=== PATIENT | male | born 1960 | race Caucasian/White ===

== ENCOUNTER 2020-06-22 15:06 | Outpatient (REF) | payer OTHER, SELFPAY ==
[2020-06-22 16:08] LABS: Appearance Urine CLEAR; Color Urine YELLOW; Glucose Urine UA NEG (NEG); Hemoglobin 14.4 g/dl (14.0-18.0); Leukocyte Esterase Urine NEG (NEG); Mean Corpuscular HGB Conc 34.3 g/dl (31.0-36.0); Mean Corpuscular Hemoglobin 31.6 pg (27.0-33.0); Mean Corpuscular Volume 92.3 fL (80-98); Mean Platelet Volume 10.3 fL (9.4-12.4); Nitrite Urine NEG (NEG); Platelet Count 224 X10*3/uL (160-400); Red Blood Count 4.55 X10*6/uL (4.60-5.80); Red Cell Distribution Width 12.4 % (11.0-16.0); Urine Blood NEG (NEG); Urine Ketones NEG (NEG); Urine Protein NEG (NEG-TRACE); White Blood Count 6.1 X10*3/uL (4.8-10.8)
[2020-06-22 16:24] LABS: Alanine Aminotransferase 29 U/L (0-40); Alkaline Phosphatase 77 U/L (39-117); Anion Gap 13 (12-20); Aspartate Amino Transferase 20 U/L (5-37); Bilirubin Direct 0.3 mg/dL (0.0-0.5); Bilirubin Total 0.7 mg/dL (0.0-1.0); Blood Urea Nitrogen 21 mg/dL (9-16); Calcium 9.2 mg/dL (8.4-10.2); Carbon Dioxide 27 mmol/L (22-29); Chloride 102 mmol/L (96-108); Cholesterol 246 mg/dL; Estimated Glomerular Filt Rate > 60; Glucose Random 170 mg/dL (60-115); HDL Cholesterol 50 mg/dL; LDL Cholesterol Calculated 169 mg/dl; Potassium 4.2 mmol/L (3.3-5.1); Sodium 138 mmol/L (135-145); Total Protein 7.4 g/dL (6.5-8.0); Triglycerides 138 mg/dL
[2020-06-22 16:46] LABS: Thyroid Stimulating Hormone 0.66 uIU/mL (0.32-4.0)
== END 2020-06-22 15:07 | disposition home or self-care (01) ==
LOC: HO.LAB 15:06
PROVIDERS: PCP Internal Medicine; Visit Provider Internal Medicine
DX: E78.00 Pure hypercholesterolemia, unspecified (principal)
CPT/HCPCS: 36415; 80048; 80061; 80076; 81003; 84443; 85027

== ENCOUNTER 2020-07-13 14:34 | Outpatient (REF) | payer OTHER, SELFPAY ==
[2020-07-13 15:13] LABS: Estimated Average Glucose 108 mg/dL; Hemoglobin A1c % 5.4 %
== END 2020-07-13 14:35 | disposition home or self-care (01) ==
LOC: HO.LAB 14:34
PROVIDERS: PCP Internal Medicine; Visit Provider Internal Medicine
DX: L72.0 Epidermal cyst (principal); R73.9 Hyperglycemia, unspecified
CPT/HCPCS: 11421; 36415; 83036; 99202

== ENCOUNTER 2020-07-14 10:32 | Outpatient (REF) | payer OTHER, SELFPAY | END 2020-07-14 10:33 | disposition home or self-care (01) | LOC: HO.LAB 10:32 | PROVIDERS: Visit Provider Surgery | DX: C44.41 Basal cell carcinoma of skin of scalp and neck (principal) | CPT/HCPCS: 88304; 88305 ==

== ENCOUNTER → 2020-07-27 14:59 | Outpatient (BNVA) | payer OTHER, SELFPAY | PROVIDERS: PCP Internal Medicine; Referring Provider Internal Medicine; Visit Provider Surgery | DX: C44.91 Basal cell carcinoma of skin, unspecified (principal) | CPT/HCPCS: 99212 ==

== ENCOUNTER 2021-08-21 15:23 | Outpatient (REF) | payer OTHER, SELFPAY ==
--- NOTE | 2021-08-21 15:28 | ECG_ITS ---
Test Reason : HTN Blood Pressure : / mmHG Vent. Rate : 067 BPM Atrial Rate : 067 BPM P-R Int : 136 ms QRS Dur : 094 ms QT Int : 382 ms P-R-T Axes : 067 062 038 degrees QTc Int : 403 ms Normal sinus rhythm with sinus arrhythmia Minimal voltage criteria for LVH, may be normal variant ( Sokolow-Duque ) Borderline ECG When compared with ECG of 03-JUL-2016 15:53, No significant change was found Referred By: Radha Mar Electronically Signed By:STEPHANIE MEHTA
[2021-08-21 15:36] LABS: MANUAL DIFF FLAG NO
[2021-08-21 15:47] LABS: Basophils Percent Auto 0.5 % (0-2); Eosinophils Absolute Auto 0.1 X10*3/uL (0.0-0.4); Eosinophils Percent Auto 1.2 % (0-4); Hematocrit 41.5 % (42.0-52.0); Hemoglobin 14.8 g/dl (14.0-18.0); Imm Gran Abs Auto 0.06 X10*3/uL (0.00-0.03); Imm Gran Pct Auto 0.8 % (0.0-0.4); Lymphocytes Absolute Auto 2.9 X10*3/uL (1.2-4.9); Lymphocytes Percent Auto 37.5 % (20-40); Mean Corpuscular HGB Conc 35.7 g/dl (31.0-36.0); Mean Corpuscular Hemoglobin 32.9 pg (27.0-33.0); Mean Corpuscular Volume 92.2 fL (80.0-98.0); Mean Platelet Volume 9.8 fL (9.4-12.4); Monocytes Absolute Auto 0.6 X10*3/uL (0.1-1.2); Monocytes Percent Auto 7.8 % (2-11); Neutrophils Percent Auto 52.2 % (45-73); Platelet Count 237 X10*3/uL (160-400); Red Cell Distribution Width 13.1 % (11.0-16.0); White Blood Count 7.7 X10*3/uL (4.8-10.8)
[2021-08-21 16:16] LABS: Alanine Aminotransferase 24 U/L (0-40); Alkaline Phosphatase 81 U/L (39-117); Anion Gap 11 (12-20); Aspartate Amino Transferase 19 U/L (5-37); Bilirubin Total 0.8 mg/dL (0.0-1.0); Blood Urea Nitrogen 19 mg/dL (9-16); Calcium 9.2 mg/dL (8.4-10.2); Carbon Dioxide 27 mmol/L (22-29); Chloride 102 mmol/L (96-108); Cholesterol 268 mg/dL; Estimated Glomerular Filt Rate > 60; Glucose Fasting 118 mg/dL (60-99); HDL Cholesterol 52 mg/dL; LDL Cholesterol Calculated 179 mg/dl; Potassium 4.6 mmol/L (3.3-5.1); Sodium 135 mmol/L (135-145); Total Protein 7.8 g/dL (6.5-8.0); Triglycerides 187 mg/dL
== END 2021-08-21 15:24 | disposition home or self-care (01) ==
LOC: HO.LAB 15:23
PROVIDERS: Visit Provider Nurse Practitioner Family
DX: I10 Essential (primary) hypertension (principal); E78.00 Pure hypercholesterolemia, unspecified
CPT/HCPCS: 36415; 80053; 80061; 85025; 93005

== ENCOUNTER → 2021-11-30 14:52 | Outpatient (BNVA) | payer OTHER, SELFPAY | PROVIDERS: PCP Internal Medicine; Visit Provider Surgery | DX: Z01.818 Encounter for other preprocedural examination (principal) | CPT/HCPCS: 99212 ==

== ENCOUNTER 2022-10-11 14:56 | Outpatient (AMB) | payer OTHER, SELFPAY ==
--- NOTE | 2022-10-11 15:05 | A.OFFPC_ITS ---
Vital Signs 10/11/22 15:06 Height 5 ft 7.5 in Weight 176 lb 8 oz BMI 27.2 BP 140/89 H Blood Pressure Location Lt brachial Position Sitting Pulse 78 Pulse Source Pulse Oximeter Pulse Oximetry (%) 98 Oxygen Delivery Method Room Air Intake Visit Reasons: Annual Exam Intake Note: Patient is here today for a physical. Rn Palliative Required: No Material Planning Analyst: Not Required per policy Accompanied by: Self / Same As Patient Allergies No Known Allergies Allergy (Verified 10/11/22 15:06) Tobacco use date assessed: 10/11/22 Dental Screening Dental Screen Date: 10/11/22 Did you have a dental visit in the last 12 months?: No Did you have a dental problem in the last 6 months where you did not have access to dental care?: No Was dental information given to patient?: No HPI Annual Exam HPI Details 61-year-old male presents to the office for annual physical. Patient for on the Cologuard test was positive. A screening colonoscopy was ordered but he never got it done. He would like to see a different provider this time. He spends half the year in [place] and spends the summer here. He would like to get a lesion on the forehead checked. [facility] Medical History Basal cell carcinoma Colon cancer screening Epidermal cyst of neck Erectile dysfunction Hypercholesterolemia Surgical History History of elbow surgery History of surgery on wrist Family History Mother Hypertension Father No problems noted. Social History Housing: House Alcohol intake: current Alcohol intake frequency: 0-2 drinks per day Alcohol type: beer Patient Tobacco Use Status: Never used Tobacco e-Cigarette/Vaping Use: Never Used Second Hand Smoke Exposure: No service: No Current occupational status: employed Cognitive needs: No Hearing needs: No Vision needs: Yes Questionnaire PHQ-9 Over the last 2 weeks, how often have you been bothered by any of the following problems? 1. Little interest or pleasure in doing things: not at all 2. Feeling down, depressed, or hopeless: not at all 3. Trouble falling or staying asleep, or sleeping too much: not at all 4. Feeling tired or having little energy: not at all 5. Poor appetite or overeating: not at all 6. Feeling bad about yourself - or that you are a failure or have let yourself or your family down: not at all 7. Trouble concentrating on things, such as reading the newspaper or watching television: not at all 8. Moving or speaking so slowly that other people could have noticed. Or the opposite - being so fidgety or restless that you have been moving around a lot more than usual: not at all 9. Thoughts that you would be better off or of hurting yourself in some way: not at all Total score: 0 Depression Screening Interpretation: Negative Source: Developed by Drs. Jamie Lozano, Joy Olivia, Juan Francisco Nix and colleagues, with an educational ale from [employer]. Thrive Questionnaire Date Thrive assessed: 10/11/22 I am a: Patient What is your living situation today?: I have a steady place to live Within the past 12 months, did the food you bought not last and you didn't have the money to get more?: Never true Within the past 12 months, did you worry whether your food would run out before you got money to buy more?: Never true Do you have trouble paying for medicines?: No Do you have trouble getting transportation to medical appointments?: No Do you have trouble paying your heating and electricity bill?: No Do you have trouble taking care of your child, family member or friend?: No Do you have trouble with day-to-day activities such as bathing, preparing meals, shopping, managing finances, etc.?: No Are you currently unemployed and looking for a job?: No Are you interested in more education?: No Currently or been in a relationship where the following occur: no concerns reported AUDIT C Alcohol Use Questionnaire (AUDIT-C) 1. How often do you have a drink containing alcohol?: 4 or more times a week 2. How many drinks containing alcohol do you have on a typical day when you are drinking?: 1 or 2 Total Score: 4 BRITTON-7 AMB Questionnaire BRITTON-7 Date BRITTON - 7 assessed: 10/11/22 Feeling nervous, anxious, or on edge: 0 = Not at all Not being able to stop or control worryin = Not at all Worrying too much about different things: 0 = Not at all Trouble relaxin = Not at all Being so restless that it is hard to sit still: 0 = Not at all Becoming easily annoyed or irritable: 0 = Not at all Feeling afraid as if something awful might happen: 0 = Not at all Total BRITTON-7 score (0-4 normal; 5-9 mild; 10-14 moderate; 15-21 severe): 0 Source: Developed by Drs. Jamie Lozano, Joy Olivia, Juan Francisco Nix and colleagues, with an educational ale from [employer]. Physical exam (Primary Care) Vital Signs: Last Vital Signs Pulse 78 10/11/22 15:06 BP 140/89 H 10/11/22 15:06 Pulse Ox 98 10/11/22 15:06 Oxygen Delivery Method Room Air 10/11/22 15:06 Care Plan Goal for BP management: Blood pressure is elevated. Lisinopril has been increased to 20 mg a day. BMI result Body Mass Index 27.2 Tobacco/Smoking Status: Tobacco use Status Tobacco use date assessed 10/11/22 10/11/22 15:12 Patient Tobacco Use Status Never used Tobacco 10/11/22 15:12 e-Cigarette/Vaping Use Never Used 10/11/22 15:12 PHQ-9: PHQ-9 Score PHQ-9: Total score 0 10/11/22 15:12 Depression Screening Interpretation: Negative Thrive Assessment: Date of Thrive Assessment Date Thrive assessed 10/11/22 10/11/22 15:12 Currently or been in a relationship where the following occur: no concerns reported Advance Care Planning discussion: Exists, not on file Date of discussion: 10/11/22 Who was present: Patient Forms completed: MOLST Time spent: 1-15 minutes, not on file Actual minutes spent: 5 Const General: cooperative, healthy appearing and comfortable HENMT Head: Yes normal to inspection and Yes atraumatic Eyes General: appearance normal, both eyes and all related structures Neck Neck: Yes normal visual inspection and Yes full ROM Chest Chest palpation & inspection: normal inspection of the chest Resp Effort & Inspection: normal respiratory effort Auscultation: clear to auscultation bilaterally Cardio Jugular venous distension: no JVD Palpation: normal PMI Rate: regular rate Heart sounds: S1 normal heart sound present and S2 normal heart sound present GI Palpation (GI): Soft to palpation and No hepatosplenomegaly present Skin Other: Scabbing lesion on the forehead. Extrem General: Yes normal to inspection and Yes full ROM Assessment and Plan Assessment & Plan (1) Colon cancer screening: Code(s): Z12.11 - Encounter for screening for malignant neoplasm of colon Plan: Patient was strongly urged to get the colonoscopy. A GI appointment has been made this time. (2) Hypertension: Code(s): I10 - Essential (primary) hypertension Plan: Blood pressure is elevated. Lisinopril has been increased to 20 mg once a day. Continue other medications. (3) Annual physical exam: Code(s): Z00.00 - Encounter for general adult medical examination without abnormal findings Plan: Blood work has been ordered. Coding Level of Care Code Est Pt Level 3 (64447) Est Pt Prev Care 40-64y(87090) Diagnoses Colon cancer screening Z12.11 Hypertension I10 Annual physical exam Z00.00 Additional Codes Vital Signs *Quality* - Advance Care Planning discussion: Exists, not on file ([id number]) Vital Signs *Quality* - Time spent: 1-15 minutes, not on file ([id number])
[2022-10-11 15:06] VITALS: BP 140/89; PULSE 78; O2SAT 98; BMI 27.2
== END 2022-10-11 15:58 | disposition home or self-care (01) ==
PROVIDERS: PCP Internal Medicine; Visit Provider Internal Medicine
DX: Z00.00 Encounter for general adult medical examination without abnormal findings (principal); Z12.11 Encounter for screening for malignant neoplasm of colon; I10 Essential (primary) hypertension
CPT/HCPCS: 1124F; 99396

== ENCOUNTER 2022-10-25 16:00 | Outpatient (AMB) | payer OTHER, SELFPAY ==
[2022-10-25 16:05] VITALS: BP 133/69; PULSE 99; BMI 26.7
--- NOTE | 2022-10-25 16:05 | MHC.OFFVIS ---
Intake Vital Signs 10/25/22 16:05 Height 5 ft 7.5 in Weight 173 lb BMI 26.7 BP 133/69 Blood Pressure Location Rt brachial Position Sitting Pulse 99 Intake Visit Reasons: Nonhealing wound of forehead Intake Note: Patient referred for non healing lesion on Mid forehead X6m. C/o occasional bleeding. No hx of skin ca. 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 He says that he has noticed this for about over 6 months now. He states that this does not heal at all. He says that these bleeds easily and would form a scab. He says that this would then bleed periodically and would not actually heal at all. [facility] Medical History (Updated 10/25/22 @ 16:20 by Sergio Bertrand MD) Basal cell carcinoma Colon cancer screening Epidermal cyst of neck Erectile dysfunction Hypercholesterolemia Skin lesion of face Surgical History History of elbow surgery History of surgery on wrist Family History Mother Hypertension Father No problems noted. Social History Housing: House Alcohol intake: current Alcohol intake frequency: 0-2 drinks per day Alcohol type: beer Patient Tobacco Use Status: Never used Tobacco e-Cigarette/Vaping Use: Never Used Second Hand Smoke Exposure: No service: No Current occupational status: employed Cognitive needs: No Hearing needs: No Vision needs: Yes Review of Systems Const Denies chills and Denies fever(s) Card Denies chest pain, Denies dyspnea and Denies dyspnea on exertion Resp Denies cough, Denies dyspnea and Denies dyspnea on exertion GI Denies hematochezia and Denies change in bowel habits Denies hematuria and Denies difficulty urinating Musc Denies back pain and Denies limited range of motion Neuro Denies focal weakness and Denies convulsions Psych Denies depression and Denies mood swings Physical Exam Vital Signs: Last Vital Signs Pulse 99 10/25/22 16:05 BP 133/69 10/25/22 16:05 BMI result Body Mass Index 26.7 Const General: comfortable and no acute distress Orientation/consciousness: patient oriented x3 HEENT Other: Small ulcerating flat lesion on the forehead about 8 mm by 3 mm, Neck Neck: Yes no lymphadenopathy Resp Auscultation: clear to auscultation bilaterally Cardio Rhythm: regular rhythm GI Palpation (GI): Soft to palpation, nontender and no guarding Neuro General: patient oriented x3 Assessment & Plan Assessment & Plan (1) Skin lesion of face: Code(s): L98.9 - Disorder of the skin and subcutaneous tissue, unspecified Plan: This continues to ulcerate and she had periodically. This is nonhealing. This may be a basal cell carcinoma or squamous cell carcinoma. I explained the technique of excision under local anesthesia. I reviewed the risks including but not limited to bleeding and infections, as well as the benefits and alternatives. He agrees to proceed This will be done at the minor procedure room. Coding Level of Care Code New Pt Level 3 (39137) Diagnoses Skin lesion of face L98.9
== END 2022-10-25 16:20 | disposition home or self-care (01) ==
PROVIDERS: PCP Internal Medicine; Visit Provider Surgery
DX: L98.9 Disorder of the skin and subcutaneous tissue, unspecified (principal)
CPT/HCPCS: 99213

== ENCOUNTER 2022-10-25 16:00 | Outpatient (REF) | payer OTHER, SELFPAY ==
[2022-10-25 18:13] LABS: Hematocrit 40.3 % (42.0-52.0); Hemoglobin 14.3 g/dl (14.0-18.0); Mean Corpuscular HGB Conc 35.5 g/dl (31.0-36.0); Mean Corpuscular Hemoglobin 32.4 pg (27.0-33.0); Mean Corpuscular Volume 91.4 fL (80.0-98.0); Mean Platelet Volume 10.3 fL (9.4-12.4); Platelet Count 220 X10*3/uL (160-400); Red Blood Count 4.41 X10*6/uL (4.60-5.80); White Blood Count 8.9 X10*3/uL (4.8-10.8)
[2022-10-25 18:32] LABS: Alanine Aminotransferase 23 U/L (0-40); Albumin Level 4.1 g/dL (3.5-5.0); Alkaline Phosphatase 76 U/L (39-117); Anion Gap 13 (12-20); Aspartate Amino Transferase 19 U/L (5-37); Bilirubin Direct 0.2 mg/dL (0.0-0.5); Bilirubin Total 0.5 mg/dL (0.0-1.0); Blood Urea Nitrogen 20 mg/dL (9-16); Calcium 9.5 mg/dL (8.4-10.2); Carbon Dioxide 22 mmol/L (22-29); Chloride 107 mmol/L (96-108); Cholesterol 187 mg/dL (<200); Estimated Glomerular Filt Rate > 60; Glucose Random 107 mg/dL (60-115); HDL Cholesterol 53 mg/dL (>40); LDL Cholesterol Calculated 97 mg/dL (<100); Potassium 3.9 mmol/L (3.3-5.1); Sodium 138 mmol/L (135-145); Total Protein 7.9 g/dL (6.5-8.0); Triglycerides 187 mg/dL (<150)
[2022-10-25 18:47] LABS: Thyroid Stimulating Hormone 1.06 uIU/mL (0.32-4.0)
== END 2022-10-25 16:01 | disposition home or self-care (01) ==
LOC: HO.LAB 16:00
PROVIDERS: Absent Provider Internal Medicine; PCP Internal Medicine; Visit Provider Surgery
DX: L98.9 Disorder of the skin and subcutaneous tissue, unspecified (principal); E78.00 Pure hypercholesterolemia, unspecified; I10 Essential (primary) hypertension
CPT/HCPCS: 36415; 80048; 80061; 80076; 84443; 85027

== ENCOUNTER 2022-11-12 07:54 | Outpatient (REF) | payer OTHER, SELFPAY ==
[2022-11-12 08:03] VITALS: BP 136/76; PULSE 62; RESP 16; TEMP 36.9; O2SAT 98; BMI 25.1
--- NOTE | 2022-11-12 08:25 | P.OP_ITS ---
Operative Note Operative Note Date of Service: 11/12/22 Narrative: Preop diagnosis: Skin lesion, forehead Postop diagnosis: The same Procedure: Excision of skin lesion, forehead Surgeon: Sergio Bertrand MD The patient is a 62-year-old male with a skin lesion on the forehead, ulcerat ing, probably about 9 mm in diameter. He understood the technique of the planned procedure as well as the risks, benefits, and alternatives He was brought to the minor procedure room. He was placed in a reclining position. A surgical time-out was done. I infiltrated the planned line of incision with lidocaine 1%. I made an elliptical incision around this lesion us ing blade 15 to include all grossly involved skin. This was carried down through the full-thickness of the skin and part of the subcutaneous layer to remove the entire lesion. This was sent as a specimen. I closed the incision with full-thickness nylon 6 0 simple interrupted sutures. Dressings were applied. The procedure was completed. He tolerated procedure well. There were no immediate complications. Estimated blood loss was less than 5 cc. He was given wound care instructions.
[2022-11-12 08:30] VITALS: BP 142/73; PULSE 61; RESP 16; O2SAT 98
== END 2022-11-12 07:55 | disposition home or self-care (01) ==
LOC: HO.MS 07:54
PROVIDERS: PCP Internal Medicine; Visit Provider Surgery
PROC: (CPT 11106; principal; 2022-11-12 08:00)
DX: C44.319 Basal cell carcinoma of skin of other parts of face (principal); L98.9 Disorder of the skin and subcutaneous tissue, unspecified
CPT/HCPCS: 11106; 88305

== ENCOUNTER → 2022-11-12 07:54 | Outpatient (BNV) | payer OTHER, SELFPAY | PROVIDERS: PCP Internal Medicine; Visit Provider Surgery | DX: C44.319 Basal cell carcinoma of skin of other parts of face (principal) | CPT/HCPCS: 11642 ==

== ENCOUNTER 2022-11-19 15:43 | Outpatient (AMB) | payer OTHER, SELFPAY ==
--- NOTE | 2022-11-19 15:45 | MHC.OFFVIS ---
Intake Vital Signs 11/19/22 15:53 BP 151/72 H Blood Pressure Location Rt brachial Position Sitting Pulse 77 Intake Visit Reasons: S/P exc skin lesion of forehead Intake Note: This patient presents for a post-op assessment status post excision skin lesion on forehead. Patient c/o; reports no issues or complaints at this time. 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 He tolerated the procedure well. He currently denies significant complaints. [facility] Medical History Skin lesion of face Colon cancer screening Basal cell carcinoma Epidermal cyst of neck Hypercholesterolemia Erectile dysfunction Surgical History History of excision of lesion (~11/12/22) History of elbow surgery History of surgery on wrist Family History Mother Hypertension Father No problems noted. Social History Housing: House Alcohol intake: current Alcohol intake frequency: 0-2 drinks per day Alcohol type: beer Patient Tobacco Use Status: Never used Tobacco e-Cigarette/Vaping Use: Never Used Second Hand Smoke Exposure: No service: No Current occupational status: employed Cognitive needs: No Hearing needs: No Vision needs: Yes Review of Systems Const Denies chills and Denies fever(s) Card Denies chest pain, Denies dyspnea and Denies dyspnea on exertion Resp Denies cough, Denies dyspnea and Denies dyspnea on exertion GI Denies hematochezia and Denies change in bowel habits Denies hematuria and Denies difficulty urinating Musc Denies back pain and Denies limited range of motion Neuro Denies focal weakness and Denies convulsions Psych Denies depression and Denies mood swings Physical Exam Const General: comfortable and no acute distress HEENT Other: Excision site on the forehead is well healed, not infected, sutures intact Resp Effort & Inspection: normal respiratory effort Assessment & Plan Assessment & Plan (1) Skin lesion of face: Code(s): L98.9 - Disorder of the skin and subcutaneous tissue, unspecified Plan: Status post excision. His incision is well healed. I removed all his sutures. His path report shows a basal cell carcinoma. This completely excised. He can follow up on a p.r.n. basis. (2) Basal cell carcinoma: Code(s): C44.91 - Basal cell carcinoma of skin, unspecified Medications: Discontinued sodium,potassium,mag sulfates 17.5-3.13-1.6 gram (Suprep Bowel Prep Kit) Discontinued Reason: Patient Completed Course DILUTE; drink full amount early evening before AND next morning at least 2 hr before procedure; follow w 960 mL water PO 354 mL 0RF Coding Level of Care Code Global (60526) Diagnoses Skin lesion of face L98.9 Basal cell carcinoma C44.91
[2022-11-19 15:53] VITALS: BP 151/72; PULSE 77
== END 2022-11-19 16:06 | disposition home or self-care (01) ==
PROVIDERS: PCP Internal Medicine; Visit Provider Surgery
DX: L98.9 Disorder of the skin and subcutaneous tissue, unspecified (principal); C44.91 Basal cell carcinoma of skin, unspecified
CPT/HCPCS: 99024

== ENCOUNTER → 2022-11-19 15:43 | Outpatient (BNVA) | payer OTHER, SELFPAY | PROVIDERS: PCP Internal Medicine; Visit Provider Surgery ==

== ENCOUNTER 2023-01-23 14:51 | Outpatient (AMB) | payer OTHER, SELFPAY ==
--- NOTE | 2023-01-23 14:57 | A.OFFVIS_ITS ---
Intake Vital Signs 01/23/23 14:58 Height 5 ft 10 in Weight 178 lb 9.191 oz BMI 25.6 BP 139/76 Blood Pressure Location Lt brachial Position Sitting Pulse 97 Intake Visit Reasons: colonoscopy screening Intake Note: Tunde presents in the office as a new patient colonoscopy screening. CC: He states that he is not having any concerns today. Assistant Department Manager Required: No Allergies cat dander Allergy (Mild, Verified 01/23/23 15:04) Unknown HPI colonoscopy screening HPI Details 62 year old? male here today for pre col onoscopy screening.? Patient was sent to us by his PCP.? This is his first colonoscopy screening.? Patient had positive Cologuard test in October of 2021. Patient denies any gastrointestinal symptoms in the past or at present.? Denies any personal or family history of gastrointestinal disease, colon polyps, or cancer.? Denies history of difficulty with sedation or anesthesia in the past.? Negative for history of sleep apnea.? Denies any history of cardiac, renal, pulmonary, or hepatic disease.?? No history of infectious? diseases like hepatitis A, B, C, HIV or tuberculosis.? Patient is not on any anticoagulation therapy. [facility] Medical History Skin lesion of face Colon cancer screening Basal cell carcinoma Epidermal cyst of neck Hypercholesterolemia Erectile dysfunction Surgical History History of excision of lesion (~11/12/22) History of elbow surgery History of surgery on wrist Family History Mother Hypertension Father No problems noted. Social History Housing: House Alcohol intake: current Alcohol intake frequency: 0-2 drinks per day Alcohol type: beer Patient Tobacco Use Status: Never used Tobacco e-Cigarette/Vaping Use: Never Used Second Hand Smoke Exposure: No service: No Current occupational status: employed Cognitive needs: No Hearing needs: No Vision needs: Yes Physical Exam Vital Signs: Last Vital Signs Pulse 97 01/23/23 14:58 BP 139/76 01/23/23 14:58 BMI result Body Mass Index 25.6 Const General: healthy appearing, no acute distress and well developed Nutritional Appearance: well nourished Orientation/consciousness: patient oriented x3 HEENT Head: Yes normal to inspection, Yes normocephalic and Yes atraumatic Face and sinus: Yes normal facial exam Mouth: Normal oral and palatal mucosa present Throat: Yes posterior oropharynx normal, Yes tonsils normal and Yes uvula midline Eyes General: appearance normal, both eyes and all related structures Neck Neck: Yes normal visual inspection, Yes full ROM and Yes trachea midline Thyroid: Thyroid normal Resp Effort & Inspection: normal respiratory effort, able to speak in complete sentences, no tracheal deviation and symmetric chest movement Auscultation: clear to auscultation bilaterally Cardio Rate: regular rate Heart sounds: S1 normal heart sound present and S2 normal heart sound present GI Inspection: Yes normal to inspection and No distended Palpation (GI): Soft to palpation, not firm, nontender and No hepatosplenomegaly present Auscultation: normal bowel sounds General: Yes no CVA tenderness Back/Spine/Pelvis Back: no CVA tenderness Skin General skin exam: elasticity normal, turgor normal and dry skin Neuro General: patient oriented x3 Psych Appearance: grossly normal Mental Status: mental status grossly normal Assessment & Plan Assessment & Plan (1) Colon cancer screening: Code(s): Z12.11 - Encounter for screening for malignant neoplasm of colon (2) Positive colorectal cancer screening using Cologuard test: Code(s): R19.5 - Other fecal abnormalities Plan Patient denies any GI, cardiac or respiratory symptoms.? Denies any issues with anesthesia in the past.? Denies any history of sleep apnea.? No history infectious diseases in the past or present.? Not on any anticoagulation therapy.? No family or personal history of colon cancer or polyps.? Positive Cologuard in October of 2021. Patient denies melena, hematochezia, unintentional weight loss or ribbon like stools.? Discussed at length the pre- procedure,? prep, diet & medications as well as what to expect prior, during and after the procedure.?? Stressed the importance of good bowel prep. ?Recommended the use of Vaseline or Calmoseptine OTC & baby wipes with bowel movements to promote comfort.? ?Patient verbalizes understanding and agrees to plan of care.? He was given the opportunity to ask questions and all questions answered.? We will see him after the procedure.? Medications: New bisacodyl (Dulcolax (bisacodyl)) take 4 tabs at noon the day before your colonoscopy 20 mg (4 x 5 mg) PO ONCE 1 day 4 tabs 0RF Z12.11 - Encounter for screening for malignant neoplasm of colon polyethylene glycol 3350 (Miralax) As directed by gastroenterology department at 238 grams PO ONCE 238 grams 0RF Z12.11 - Encounter for screening for malignant n eoplasm of colon Coding Level of Care Code New Pt Level 3 (50492) Diagnoses Colon cancer screening Z12.11 Positive colorectal cancer screening using Cologuard test R19.5 Time Spent (min) 40 Comment 30 minutes spent with patient and additional 10 minutes spent reviewing his records
[2023-01-23 14:58] VITALS: BP 139/76; PULSE 97; BMI 25.6
== END 2023-01-23 15:29 | disposition home or self-care (01) ==
PROVIDERS: PCP Internal Medicine; Visit Provider Nurse Practitioner Family
DX: Z12.11 Encounter for screening for malignant neoplasm of colon (principal); R19.5 Other fecal abnormalities; Z01.818 Encounter for other preprocedural examination
CPT/HCPCS: 99203

== ENCOUNTER → 2023-01-23 14:51 | Outpatient (BNVA) | payer OTHER, SELFPAY | PROVIDERS: PCP Internal Medicine; Visit Provider Nurse Practitioner Family | DX: Z12.11 Encounter for screening for malignant neoplasm of colon (principal); R19.5 Other fecal abnormalities | CPT/HCPCS: 99202 ==

== ENCOUNTER 2023-06-03 10:00 | Day surgery (SDC) | payer OTHER, SELFPAY ==
[2023-05-30 14:52] VITALS: BMI 25.5
--- NOTE | 2023-05-31 09:51 | P.CONAN_ITS ---
Documented by User: Jeimy Menendez NP 05/31/23 09:51 HPI - Anesthesia Eval Consult details Narrative: 62yo M for Colonoscopy [facility] Active Problems Active Problems: All Active Problems Skin lesion of face (Acute) Colon cancer screening (Acute) Hypertension (Acute) Basal cell carcinoma (Acute) Epidermal cyst of neck (Acute) Hyperglycemia (Acute) Hordeolum external (Acute) Squamous cell carcinoma of neck (Acute) Hypercholesterolemia (Acute) Erectile dysfunction (Acute) Past Medical History Medical History Skin lesion of face Colon cancer screening Basal cell carcinoma Epidermal cyst of neck Hypercholesterolemia Erectile dysfunction Family History Family History Mother Hypertension Father No problems noted. Surgical History Surgical History History of excision of lesion (~11/12/22) History of elbow surgery History of surgery on wrist Social History Social History Housing: House Alcohol intake: current Alcohol intake frequency: 0-2 drinks per day Alcohol type: beer Patient Tobacco Use Status: Never used Tobacco e-Cigarette/Vaping Use: Never Used Second Hand Smoke Exposure: No Use of substances other than those prescribed or required for medical reasons: Yes Are you DNR?: No Advance Directives: No Advance Directives Information Provided: Yes service: No Current occupational status: employed Cognitive needs: No Hearing needs: No Vision needs: Yes Meds Allergies Allergy/AdvReac Type Severity Reaction Status Date / Time cat dander Allergy Mild Unknown Verified 06/03/23 10:06 Exam Height,Weight and Vital Signs: Height 5 ft 10 in Weight 80.739 kg Assessment and Plan Assessment Anesthesia Assessment: Chart Reviewed Documented by User: Josefa Parks MD 06/03/23 10:23 [facility] Past Medical History Medical History Skin lesion of face Colon cancer screening Basal cell carcinoma Epidermal cyst of neck Hypercholesterolemia Erectile dysfunction Family History Family History Mother Hypertension Father No problems noted. Family history of problems with anesthesia: No Surgical History Surgical History History of excision of lesion (~11/12/22) History of elbow surgery History of surgery on wrist History of Problems with Anesthesia: No Social History Social History Housing: House Alcohol intake: current Alcohol intake frequency: 0-2 drinks per day Alcohol type: beer Patient Tobacco Use Status: Never used Tobacco e-Cigarette/Vaping Use: Never Used Second Hand Smoke Exposure: No Use of substances other than those prescribed or required for medical reasons: Yes Are you DNR?: No Advance Directives: No Advance Directives Information Provided: Yes service: No Current occupational status: employed Cognitive needs: No Hearing needs: No Vision needs: Yes Meds Allergies Allergy/AdvReac Type Severity Reaction Status Date / Time cat dander Allergy Mild Unknown Verified 06/03/23 10:06 Exam Airway Mallampati Class: II TM Dist: >3cm Neck ROM: Full Heart: rrr Lungs: cta Assessment and Plan Assessment Anesthesia Assessment: Anesthesia Plan Discussed Final Anesthetic Review Family History of Problems with Anesthesia: No History of Problems with Anesthesia: No NPO: Yes ASA Class: II Final Preanesthetic Review: No Changes in Pt Med Stat, Meds/Allgs Chart Reviewed and Consent Obtained/Reviewed Patient Risk: Low Procedure Risk: Low Anesthetic Plan Anesthetic Plan: MAC: Disposition: Standard PACU
--- NOTE | 2023-06-03 09:35 | MHC.SHP ---
Pre-Procedural Eval Section A - 24 Hr Update-Section A only Date of Service: 06/03/23 The patient is an INPATIENT: No The patient has been examined within 24 hours of the surgical procedure. The History & Physical has been completed within 30 days and I have reviewed it.: No Section B - Complete if H&P > 30 days Chief Complaint: Colon cancer screening, positive Cologuard Relevant Family History (Specify if Yes): No Relevant Social History: None Present Medications: see Short Stay Collaborative assessment Medical History: Significant History (Basal cell carcinoma Epidermal cyst of neck Hypercholesterolemia Erectile dysfunction) History of Previous Operations: Relevant previous surgery/procedure and date(s) (History of excision of lesion (~11/12/22) History of elbow surgery History of surgery on wrist) Allergies: Allergies Allergy/AdvReac Type Severity Reaction Status Date / Time cat dander Allergy Mild Unknown Verified 01/23/23 15:04 Review of Systems Sugical H&P ROS: Negative: Constitution, Cardiovascular, Respiratory and Gastrointestinal Exam Surgical H&P Exam: Normal: Heart, Normal: Lungs, Normal: Extremities and Normal: Abdomen Plan Diagnosis/Plan: Unchanged I have reviewed the history and physical and performed a pertinent physical examination on my patient. No changes have occurred unless specified. Time Spent With Patient Time: Total time managing care of this patient today ____ minutes.
[2023-06-03 10:16] VITALS: BMI 25.1
[2023-06-03 10:18] VITALS: BP 168/90; PULSE 88; RESP 16; TEMP 37.4; O2SAT 97
--- NOTE | 2023-06-03 10:21 | P.OP_ITS ---
Operative Note Operative Note Date of Service: 06/03/23 Narrative: COLONOSCOPY TILL CECUM WITH BIOPSIES, SNARE POLYPECTOMY AND HEMOCLIP PLACEMENT Pre-op diagnosis: Colon cancer screening, positive Cologuard test. Post-op diagnosis:? Colon polyps, Diverticulosis, hemorrhoids Endoscopist:? Lalito Reddy MD Anesthesia:?MAC Consent: Indications for the procedure and potential complications of bleeding, perforation, reaction to medications and missed diagnosis were discussed with the patient and informed consent was obtained. Instrument: Olympus CF H 190 L variable stiffness adult colonoscope Monitoring: Vital signs and clinical assessment, intermittent blood pressure monitoring, continuous EKG monitoring, Pulse oximetry and Carbon Dioxide monitoring were done throughout the procedure. Please see anesthesia flowsheet. Colon withdrawl time was 31 minutes. Procedure: The patient was placed in the left lateral decubitis position and pre-procedure medications were administered. After a digital rectal examination of the ano-rectum, the video colonoscope was inserted into the rectum and advanced through the colon to the cecum. The colonoscope was slowly withdrawn in a retrograde panoramic fashion and the colon mucosa was carefully examined including a retroflexed view of the rectum. Findings and interventions are described below. Procedure Difficulty: without difficulty Findings: Terminal Ileum: Not evaluated Cecum: A 7-8 mm sessile polyp - removed with a cold snare Ascending Colon: Normal Transverse Colon: A 3-4 mm sessile polyp - removed with a cold biopsy Descending Colon: Moderate diverticulosis Sigmoid Colon: A 4-5 mm diminutive appearing polyp - removed with a cold snare. Moderate diverticulosis Rectum: An 18 to 20 mm sessile polyp - removed with a hot snare. Polypectomy site was closed with 1 hemoclip. A 7-8 mm sessile polyp - removed with a hot snare. Ano-rectum: Moderate internal hemorrhoids Colon preparation: Good after copious irrigation. [place] Bowel Preparation Scale Right colon; 2 Transverse colon: 2 Left colon; 2 (0 = Unprepared colon segment with mucosa not seen due to solid stool that cannot be cleared. 1 = Portion of mucosa of the colon segment seen, but other areas of the colon segment not well seen due to staining, residual stool and/or opaque liquid. 2 = Minor amount of residual staining, small fragments of stool and/or opaque liquid, but mucosa of colon segment seen well. 3 = Entire mucosa of colon segment seen well with no residual staining, small fragments of stool or opaque liquid) Impression and Post Procedure Diagnosis: Colonoscopy Findings: Four small and one medium sized polyps were removed Moderate diverticulosis seen in the left colon Moderate hemorrhoids on retroflexed exam. Plan: Pt has a FU appointment on 06/17/23 with Edie Ward NP Repeat Colonoscopy in 3-5 years if polyps are adenomatous and 10 year if polyps are hyperplastic. Above findings were reviewed with the patient and relevant handouts were given and the discharge area. BIOPSIES SHOWED: A. Cecum, polypectomy: Tubular adenoma; negative for high-grade dysplasia or carcinoma. B. Colon, transverse, polypectomy: Colonic mucosa with mild surface hyperplastic changes. C. Colon, sigmoid, polypectomy: Hyperplastic mucosal polyp with prolapse changes. D. Rectum, polypectomies: Fragments of traditional serrated adenomata; multiple additional levels examined Letter sent advising repeat colonoscopy in 3 years.
[2023-06-03] MEDS: Lactated Ringers 1,000 ML 100 ML IVCONT (10:32)
[2023-06-03 11:20] VITALS: BP 118/64; PULSE 65; RESP 16; TEMP 36.2; O2SAT 98
[2023-06-03 11:35] VITALS: BP 144/89; PULSE 69; RESP 18; TEMP 36.4; O2SAT 99
== END 2023-06-03 12:16 | disposition home or self-care (01) ==
PROVIDERS: PCP Family Medicine; Visit Provider Internal Medicine Gastroenterology
PROC: 0DJD8ZZ Inspection of Lower Intestinal Tract, Via Natural or Artificial Opening Endoscopic (ICD-10-PCS; CPT 45378; principal; 2023-06-03 12:00)
DX: R19.5 Other fecal abnormalities (principal); D12.0 Benign neoplasm of cecum; D12.8 Benign neoplasm of rectum; K63.5 Polyp of colon; K57.30 Diverticulosis of large intestine without perforation or abscess without bleeding; K64.8 Other hemorrhoids; E78.00 Pure hypercholesterolemia, unspecified; N52.9 Male erectile dysfunction, unspecified; Z85.828 Personal history of other malignant neoplasm of skin; Z98.890 Other specified postprocedural states
CPT/HCPCS: 45385; 45380; 88305; J2704

== ENCOUNTER → 2023-06-03 10:00 | Outpatient (BNV) | payer OTHER, SELFPAY | PROVIDERS: PCP Family Medicine; Visit Provider Internal Medicine Gastroenterology | DX: Z12.11 Encounter for screening for malignant neoplasm of colon (principal); K63.5 Polyp of colon; K57.90 Diverticulosis of intestine, part unspecified, without perforation or abscess without bleeding; K64.8 Other hemorrhoids | CPT/HCPCS: 45380; 45385 ==

== ENCOUNTER 2023-06-17 13:54 | Outpatient (AMB) | payer OTHER, SELFPAY ==
[2023-06-17 13:56] VITALS: BP 157/87; PULSE 97; BMI 25.9
--- NOTE | 2023-06-17 13:56 | A.OFFVIS_ITS ---
Vital Signs 06/17/23 13:56 Height 5 ft 10 in Weight 180 lb 12.465 oz BMI 25.9 BP 157/87 H Blood Pressure Location Rt brachial Position Sitting Pulse 97 Pulse Source Pulse Oximeter Intake Visit Reasons: s/P [place]; Dr. Reddy Intake Note: Pt presents to the office today for a s/p colo. Pt states he is feeling well and denies any GI concerns at this time. Allergies cat dander Allergy (Mild, Verified 06/17/23 13:58) Unknown HPI HPI s/P [place]; Dr. Reddy: Details: LAST VISIT: Colon cancer screening Positive colorectal cancer screening using Cologuard test Plan Patient denies any GI, cardiac or respiratory symptoms.? Denies any issues with anesthesia in the past.? Denies any history of sleep apnea.? No history infectious diseases in the past or present.? Not on any anticoagulation therapy.? No family or personal history of colon cancer or polyps.? Positive Cologuard in October of 2021. Patient denies melena, hematochezia, unintentional weight loss or ribbon like stools.? Discussed at length the pre- procedure,? prep, diet & medications as well as what to expect prior, during and after the procedure.?? Stressed the importance of good bowel prep. ?Recommended the use of Vaseline or Calmoseptine OTC & baby wipes with bowel movements to promote comfort.? ?Patient verbalizes understanding and agrees to plan of care.? He was given the opportunity to ask questions and all questions answered.? We will see him after the procedure.? Medications New bisacodyl (Dulcolax (bisacodyl)) take 4 tabs at noon the day before your colonoscopy 20 mg (4 x 5 mg) PO ONCE 1 day 4 tabs 0RF Z12.11 polyethylene glycol 3350 (Miralax) As directed by gastroenterology department at [facility] 238 grams PO ONCE 238 grams 0RF Z12.11 COLONOSCOPY RESULTS Findings: Terminal Ileum: Not evaluated Cecum: A 7-8 mm sessile polyp - removed with a cold snare Ascending Colon: Normal Transverse Colon: A 3-4 mm sessile polyp - removed with a cold biopsy Descending Colon: Moderate diverticulosis Sigmoid Colon: A 4-5 mm diminutive appearing polyp - removed with a cold snare. Moderate diverticulosis Rectum: An 18 to 20 mm sessile polyp - removed with a hot snare. Polypectomy site was closed with 1 hemoclip. A 7-8 mm sessile polyp - removed with a hot snare. Ano-rectum: Moderate internal hemorrhoids Colon preparation: Good after copious irrigation. [place] Bowel Preparation Scale Right colon; 2 Transverse colon: 2 Left colon; 2 (0 = Unprepared colon segment with mucosa not seen due to solid stool that cannot be cleared. 1 = Portion of mucosa of the colon segment seen, but other areas of the colon segment not well seen due to staining, residual stool and/or opaque liquid. 2 = Minor amount of residual staining, small fragments of stool and/or opaque liquid, but mucosa of colon segment seen well. 3 = Entire mucosa of colon segment seen well with no residual staining, small fragments of stool or opaque liquid) Impression and Post Procedure Diagnosis: Colonoscopy Findings: Four small and one medium sized polyps were removed Moderate diverticulosis seen in the left colon Moderate hemorrhoids on retroflexed exam. Plan: Repeat Colonoscopy in 3-5 years if polyps are adenomatous and 10 year if polyps are hyperplastic. Above findings were reviewed with the patient and relevant handouts were given and the discharge area. BIOPSIES SHOWED: A. Cecum, polypectomy: Tubular adenoma; negative for high-grade dysplasia or carcinoma. B. Colon, transverse, polypectomy: Colonic mucosa with mild surface hyperplastic changes. C. Colon, sigmoid, polypectomy: Hyperplastic mucosal polyp with prolapse changes. D. Rectum, polypectomies: Fragments of traditional serrated adenomata; multiple additional levels examined Letter sent advising repeat colonoscopy in 3 years. TODAY'S VISIT: Patient is here today for follow-up and to discuss colonoscopy results. Patient denies any ill effects from the prep, anesthesia or procedure itself. Tubular adenoma found in cecum and fragments of serrated adenoma found in rectum. Recommendation was made for 3 year follow-up colonoscopy. Patient denies any ill effects from the prep, anesthesia or procedure itself. Patient reports that he has been feeling well since procedure. Reports to be moving bowels well. Moderate diverticulosis seen in left side of the colon. Patient is aware of high-fiber diet. [facility] Medical History (Updated 06/17/23 @ 14:44 by Petra Ward, [facility]) Diverticulosis Tubular adenoma of colon Skin lesion of face Colon cancer screening Basal cell carcinoma Epidermal cyst of neck Hypercholesterolemia Erectile dysfunction Surgical History History of excision of lesion (~11/12/22) History of elbow surgery History of surgery on wrist Family History Mother Hypertension Father No problems noted. Social History Housing: House Alcohol intake: current Alcohol intake frequency: 0-2 drinks per day Alcohol type: beer Patient Tobacco Use Status: Never used Tobacco e-Cigarette/Vaping Use: Never Used Second Hand Smoke Exposure: No service: No Current occupational status: employed Cognitive needs: No Hearing needs: No Vision needs: Yes Review of Systems Const Denies weight gain and Denies weight loss ENT Reports no additional complaints, Denies dysphagia and Denies odynophagia Card Reports no additional complaints Resp Reports no additional complaints GI Denies abdominal pain, Denies belching, Denies melena, Denies bloating, Denies change in bowel habits, Denies dysphagia, Denies excessive flatus, Denies dyspe psia, Denies heartburn, Denies diarrhea, Denies loose stools, Denies nausea, Denies odynophagia and Denies vomiting Reports no additional complaints Musc Reports no additional complaints Neuro Reports no additional complaints Psych Reports no additional complaints Endo Reports no additional complaints Physical Exam Vital Signs: Last Vital Signs Pulse 97 06/17/23 13:56 BP 157/87 H 06/17/23 13:56 BMI result Body Mass Index 25.9 Const General: healthy appearing, no acute distress and well developed Nutritional Appearance: well nourished Orientation/consciousness: patient oriented x3 Resp Effort & Inspection: normal respiratory effort, able to speak in complete sentences, no tracheal deviation and symmetric chest movement Auscultation: clear to auscultation bilaterally Cardio Rate: regular rate GI Inspection: Yes normal to inspection and No distended Palpation (GI): Soft to palpation, not firm, nontender and No hepatosplenomegaly present Auscultation: normal bowel sounds General: Yes no CVA tenderness Back/Spine/Pelvis Back: no CVA tenderness Skin General skin exam: elasticity normal, turgor normal and dry skin Neuro General: patient oriented x3 Psych Appearance: grossly normal Mental Status: mental status grossly normal Assessment & Plan Assessment & Plan (1) Tubular adenoma of colon: Code(s): D12.6 - Benign neoplasm of colon, unspecified Category: Medical (2) Status post colonoscopy: Code(s): Z98.890 - Other specified postprocedural states (3) Diverticulosis: Code(s): K57.90 - Diverticulosis of intestine, part unspecified, without perforation or abscess without bleeding Category: Medical Plan High-fiber diet discussed with patient. Recommendation was made to try additional fiber supplement and probiotics. Colorectal screening recommended in 3 years, sooner if clinically necessary. Patient denies any GI concerning symptoms. He will follow-up in our office on as needed basis and in 3 years for colorectal screening. Patient is agreeable to this plan and verbalizes understanding of instructions. He was given the opportunity to ask questions and all questions answered. Thank you for allowing me to participate in his care
== END 2023-06-17 14:24 | disposition home or self-care (01) ==
LOC: HO.HGI 13:54
PROVIDERS: PCP Internal Medicine; Visit Provider Nurse Practitioner Family
DX: D12.6 Benign neoplasm of colon, unspecified (principal); Z98.890 Other specified postprocedural states; K57.90 Diverticulosis of intestine, part unspecified, without perforation or abscess without bleeding
CPT/HCPCS: 99213

== ENCOUNTER → 2023-06-17 13:54 | Outpatient (BNVA) | payer OTHER, SELFPAY | PROVIDERS: PCP Internal Medicine; Visit Provider Nurse Practitioner Family | DX: D12.6 Benign neoplasm of colon, unspecified (principal); K57.90 Diverticulosis of intestine, part unspecified, without perforation or abscess without bleeding; Z98.890 Other specified postprocedural states | CPT/HCPCS: 99212 ==

== ENCOUNTER 2023-10-31 12:39 | Outpatient (REF) | payer OTHER, SELFPAY ==
[2023-10-31 12:58] LABS: Hematocrit 42.3 % (42.0-52.0); Hemoglobin 14.7 g/dl (14.0-18.0); Mean Corpuscular HGB Conc 34.8 g/dl (31.0-36.0); Mean Corpuscular Hemoglobin 32.2 pg (27.0-33.0); Mean Corpuscular Volume 92.8 fL (80.0-98.0); Mean Platelet Volume 9.7 fL (9.4-12.4); Platelet Count 223 X10*3/uL (160-400); Red Blood Count 4.56 X10*6/uL (4.60-5.80); Red Cell Distribution Width 12.6 % (11.0-16.0); White Blood Count 7.1 X10*3/uL (4.8-10.8)
[2023-10-31 13:13] LABS: Appearance Urine Clear; Color Urine Yellow; Glucose Urine UA Negative (Negative); Leukocyte Esterase Urine Negative (Negative); Nitrite Urine Negative (Negative); PH 5.5 (5.0-9.0); UMIC TRIGGER UA YES; Urine Blood Negative (Negative); Urine Ketones Negative (Negative); Urine Protein 30 (1+) mg/dL (Neg-Trace)
[2023-10-31 13:15] LABS: Bacteria Urine None Seen (None Seen); RBC Urine 0-2 /HPF (0-2); Squamous Epithelial Cell Urine 0-2 /HPF (0-2); WBC Urine 0-5 /HPF (0-5)
[2023-10-31 14:08] LABS: Alanine Aminotransferase 51 U/L (0-40); Albumin Level 4.2 g/dL (3.5-5.0); Alkaline Phosphatase 93 U/L (39-117); Anion Gap 14 (12-20); Aspartate Amino Transferase 30 U/L (5-37); Bilirubin Direct 0.2 mg/dL (0.0-0.5); Bilirubin Total 0.4 mg/dL (0.0-1.0); Blood Urea Nitrogen 15 mg/dL (9-16); Calcium 9.5 mg/dL (8.4-10.2); Carbon Dioxide 26 mmol/L (22-29); Chloride 105 mmol/L (96-108); Cholesterol 216 mg/dL (<200); Estimated Glomerular Filt Rate > 60; Glucose Random 112 mg/dL (60-115); HDL Cholesterol 56 mg/dL (>40); LDL Cholesterol Calculated 147 mg/dL (<100); Potassium 4.8 mmol/L (3.3-5.1); Sodium 140 mmol/L (135-145); Total Protein 8.2 g/dL (6.5-8.0); Triglycerides 65 mg/dL (<150)
[2023-10-31 14:26] LABS: Thyroid Stimulating Hormone 1.05 uIU/mL (0.32-4.0)
== END 2023-10-31 12:40 | disposition home or self-care (01) ==
LOC: HO.LAB 12:39
PROVIDERS: PCP Internal Medicine; Visit Provider Internal Medicine
DX: I10 Essential (primary) hypertension (principal); R73.9 Hyperglycemia, unspecified
CPT/HCPCS: 36415; 80048; 80061; 80076; 81001; 81003; 84443; 85027

== ENCOUNTER 2023-10-31 13:29 | Outpatient (AMB) | payer OTHER, SELFPAY ==
--- NOTE | 2023-10-31 13:39 | A.OFFPC_ITS ---
Vital Signs 10/31/23 13:41 Height 5 ft 10 in Weight 172 lb 8 oz BMI 24.7 BP 120/70 Blood Pressure Location Lt brachial Position Sitting Pulse 81 Pulse Source Pulse Oximeter Pulse Oximetry (%) 96 Oxygen Delivery Method Room Air Intake Visit Reasons: annual exam Intake Note: Patient is here today for a physical. Dramatic Coach Required: No Inseam Leveler: Not Required per policy Accompanied by: Self / Same As Patient Allergies cat dander Allergy (Mild, Verified 10/31/23 13:40) Unknown Tobacco use date assessed: 10/31/23 Dental Screening Dental Screen Date: 10/31/23 Did you have a dental visit in the last 12 months?: No Did you have a dental problem in the last 6 months where you did not have access to dental care?: No Was dental information given to patient?: Patient has dentist HPI annual exam HPI Details 62-year-old male presents to the office requesting an annual physical. Patient has 4 drinks a day. He has been drinking since age 14. On the days he does not drink he has intense craving. Does not drink alone or in the morning. Does not admit to having symptoms of depression. [facility] Medical History Diverticulosis Tubular adenoma of colon Skin lesion of face Colon cancer screening Basal cell carcinoma Epidermal cyst of neck Hypercholesterolemia Erectile dysfunction Surgical History History of colonoscopy (~06/03/23) History of excision of lesion (~11/12/22) History of elbow surgery History of surgery on wrist Family History Mother Hypertension Father No problems noted. Social History Housing: House Alcohol intake: current Alcohol intake frequency: 0-2 drinks per day Alcohol type: beer Patient Tobacco Use Status: Never used Tobacco e-Cigarette/Vaping Use: Never Used Second Hand Smoke Exposure: No service: No Current occupational status: employed Cognitive needs: No Hearing needs: No Vision needs: Yes (glasses) Questionnaire PHQ-9 Over the last 2 weeks, how often have you been bothered by any of the following problems? 1. Little interest or pleasure in doing things: not at all 2. Feeling down, depressed, or hopeless: not at all 3. Trouble falling or staying asleep, or sleeping too much: not at all 4. Feeling tired or having little energy: not at all 5. Poor appetite or overeating: not at all 6. Feeling bad about yourself - or that you are a failure or have let yourself or your family down: not at all 7. Trouble concentrating on things, such as reading the newspaper or watching television: not at all 8. Moving or speaking so slowly that other people could have noticed. Or the opposite - being so fidgety or restless that you have been moving around a lot more than usual: not at all 9. Thoughts that you would be better off or of hurting yourself in some way: not at all Total score: 0 Depression Screening Interpretation: Negative Depression Screening Done: Yes Source: Developed by Drs. Jamie Lozano, Joy Olivia, Juan Francisco Nix and colleagues, with an educational ale from [employer]. Thrive Questionnaire Date Thrive assessed: 10/31/23 I am a: Patient What is your living situation today?: I have a steady place to live Within the past 12 months, did the food you bought not last and you didn't have the money to get more?: Never true Within the past 12 months, did you worry whether your food would run out before you got money to buy more?: Never true Do you have trouble paying for medicines?: No Do you have trouble getting transportation to medical appointments?: No Do you have trouble paying your heating and electricity bill?: No Do you have trouble taking care of your child, family member or friend?: No Do you have trouble with day-to-day activities such as bathing, preparing meals, shopping, managing finances, etc.?: No Are you currently unemployed and looking for a job?: No Are you interested in more education?: No Please select the resources that you would like help with: None Currently or been in a relationship where the following occur: No concerns reported THRIVE Score: 0 AUDIT C Alcohol Use Questionnaire (AUDIT-C) 1. How often do you have a drink containing alcohol?: 4 or more times a week 2. How many drinks containing alcohol do you have on a typical day when you are drinking?: 3 or 4 3. How often do you have six or more drinks on one occasion?: Less than monthly Total Score: 6 BRITTON-7 AMB Questionnaire BRITTON-7 Date BRITTON - 7 assessed: 10/31/23 Feeling nervous, anxious, or on edge: 0 = Not at all Not being able to stop or control worryin = Not at all Worrying too much about different things: 0 = Not at all Trouble relaxin = Not at all Being so restless that it is hard to sit still: 0 = Not at all Becoming easily annoyed or irritable: 0 = Not at all Feeling afraid as if something awful might happen: 0 = Not at all Total BRITTON-7 score (0-4 normal; 5-9 mild; 10-14 moderate; 15-21 severe): 0 Source: Developed by Drs. Jamie Loznao, Joy Olivia, Juan Francisco Nix and colleagues, with an educational ale from [employer]. Physical exam (Primary Care) Vital Signs: Last Vital Signs Pulse 81 10/31/23 13:41 BP 120/70 10/31/23 13:41 Pulse Ox 96 10/31/23 13:41 Oxygen Delivery Method Room Air 10/31/23 13:41 Care Plan Goal for BP management: Blood pressure is in range. BMI result Body Mass Index 24.7 Tobacco/Smoking Status: Tobacco use Status Tobacco use date assessed 10/31/23 10/31/23 13:40 Patient Tobacco Use Status Never used Tobacco 10/31/23 13:40 e-Cigarette/Vaping Use Never Used 10/31/23 13:40 PHQ-9: PHQ-9 Score PHQ-9: Total score 0 10/31/23 13:40 Depression Screening Interpretation: Negative Thrive Assessment: Date of Thrive Assessment Date Thrive assessed 10/31/23 10/31/23 13:40 Currently or been in a relationship where the following occur: No concerns reported Const General: cooperative and healthy appearing Nutritional Appearance: well nourished Orientation/consciousness: patient oriented x3 Limitations: no limitations HENMT Head: Yes normal to inspection Eyes General: appearance normal, both eyes and all related structures Neck Neck: Yes normal visual inspection Chest Chest palpation & inspection: normal palpation of entire chest wall Resp Effort & Inspection: normal respiratory effort Neuro General: patient oriented x3 Assessment and Plan Assessment & Plan (1) Hypertension: Code(s): I10 - Essential (primary) hypertension Plan: Blood pressure is in range. Continue medications at same dosage. (2) Annual physical exam: Code(s): Z00.00 - Encounter for general adult medical examination without abnormal findings Plan: Patient is consuming alcohol frequently., counseling done. Will call patient with rest of the blood work results. Up-to-date on screening colonoscopy. Orders: Orders Complete Blood Count no Diff 02/26/24 I10 - Essential (primary) hypertension Liver Panel 02/26/24 I10 - Essential (primary) hypertension Prostate Specific Antigen Scr 02/26/24 I10 - Essential (primary) hypertension Basic Metabolic Panel 02/26/24 I10 - Essential (primary) hypertension Lipid Panel 02/26/24 I10 - Essential (primary) hypertension UA and rflx microscopic 02/26/24 I10 - Essential (primary) hypertension Coding Level of Care Code Est Pt Prev Care 40-64y(53013) Diagnoses Hypertension I10 Annual physical exam Z00.00
[2023-10-31 13:41] VITALS: BP 120/70; PULSE 81; O2SAT 96; BMI 24.7
== END 2023-10-31 14:05 | disposition home or self-care (01) ==
PROVIDERS: PCP Internal Medicine; Visit Provider Internal Medicine
DX: Z00.00 Encounter for general adult medical examination without abnormal findings (principal); I10 Essential (primary) hypertension; Z85.828 Personal history of other malignant neoplasm of skin
CPT/HCPCS: 99396

== ENCOUNTER 2024-06-11 13:59 | Outpatient (AMB) | payer OTHER, SELFPAY ==
--- NOTE | 2024-06-11 14:05 | A.OFFPC_ITS ---
Vital Signs 06/11/24 14:06 Height 5 ft 10 in Weight 176 lb BMI 25.3 BP 110/68 Blood Pressure Location Lt brachial Position Sitting Pulse 81 Pulse Source Pulse Oximeter Temp 97.3 F Temp Source Temporal Artery Scan Pulse Oximetry (%) 95 Oxygen Delivery Method Room Air Intake Visit Reasons: 6mth f/u Intake Note: Patient is here to follow up on HTN, Hypercholesterolemia. Sales Ledger Administrator Required: No Spice Miller: Not Required per policy Accompanied by: Self / Same As Patient Allergies cat dander Allergy (Mild, Verified 06/11/24 14:25) Unknown Medication List - Last Reconciled 06/11/24 by Omer Grace MD atorvastatin 10 mg PO BEDTIME ibuprofen 800 mg PO Q8H PRN lisinopril 20 mg PO DAILY tadalafil (Cialis) 10 mg PO DAILY PRN Tobacco use date assessed: 06/11/24 Fall risk assessment: No Falls in past year Last assessed Fall Risk: 06/11/24 Dental Screening Dental Screen Date: 06/11/24 Did you have a dental visit in the last 12 months?: No Did you have a dental problem in the last 6 months where you did not have access to dental care?: No Was dental information given to patient?: Patient has dentist [facility] Medical History (Updated 06/11/24 @ 14:28 by Omer Grace MD) Alcohol use Diverticulosis Tubular adenoma of colon Skin lesion of face Colon cancer screening Basal cell carcinoma Epidermal cyst of neck Hypercholesterolemia Erectile dysfunction Surgical History History of colonoscopy (~06/03/23) History of excision of lesion (~11/12/22) History of elbow surgery History of surgery on wrist Family History Mother Hypertension Father No problems noted. Social History Housing: House Alcohol intake: current Alcohol intake frequency: 0-2 drinks per day Alcohol type: beer Patient Tobacco Use Status: Never used Tobacco e-Cigarette/Vaping Use: Never Used Second Hand Smoke Exposure: No service: No Current occupational status: employed Cognitive needs: No Hearing needs: No Vision needs: Yes (glasses) Questionnaire PHQ-9 Over the last 2 weeks, how often have you been bothered by any of the following problems? 1. Little interest or pleasure in doing things: not at all 2. Feeling down, depressed, or hopeless: not at all 3. Trouble falling or staying asleep, or sleeping too much: not at all 4. Feeling tired or having little energy: not at all 5. Poor appetite or overeating: not at all 6. Feeling bad about yourself - or that you are a failure or have let yourself or your family down: not at all 7. Trouble concentrating on things, such as reading the newspaper or watching television: not at all 8. Moving or speaking so slowly that other people could have noticed. Or the opposite - being so fidgety or restless that you have been moving around a lot more than usual: not at all 9. Thoughts that you would be better off or of hurting yourself in some way: not at all Total score: 0 Depression Screening Interpretation: Negative Depression Screening Done: Yes Source: Developed by Drs. Jamie Lozano, Joy Olivia, Juan Francisco Nix and colleagues, with an educational ale from [employer]. Thrive Questionnaire Date Thrive assessed: 06/11/24 I am a: Patient What is your living situation today?: I have a steady place to live Within the past 12 months, did the food you bought not last and you didn't have the money to get more?: Never true Within the past 12 months, did you worry whether your food would run out before you got money to buy more?: Never true Do you have trouble paying for medicines?: No Do you have trouble getting transportation to medical appointments?: No Do you have trouble paying your heating and electricity bill?: No Do you have trouble taking care of your child, family member or friend?: No Do you have trouble with day-to-day activities such as bathing, preparing meals, shopping, managing finances, etc.?: No Are you currently unemployed and looking for a job?: No Are you interested in more education?: No Please select the resources that you would like help with: None Currently or been in a relationship where the following occur: No concerns reported THRIVE Score: 0 AUDIT C Alcohol Use Questionnaire (AUDIT-C) 2. How many drinks containing alcohol do you have on a typical day when you are drinking?: 1 or 2 3. How often do you have six or more drinks on one occasion?: Monthly Total Score: 2 BRITTON-7 AMB Questionnaire BRITTON-7 Date BRITTON - 7 assessed: 06/11/24 Feeling nervous, anxious, or on edge: 0 = Not at all Not being able to stop or control worryin = Not at all Worrying too much about different things: 0 = Not at all Trouble relaxin = Not at all Being so restless that it is hard to sit still: 0 = Not at all Becoming easily annoyed or irritable: 0 = Not at all Feeling afraid as if something awful might happen: 0 = Not at all Total BRITTON-7 score (0-4 normal; 5-9 mild; 10-14 moderate; 15-21 severe): 0 Source: Developed by Drs. Jamie Lozano, Joy Olivia, Juan Francisco Nix and colleagues, with an educational ale from [employer]. Physical exam (Primary Care) Vital Signs: Last Vital Signs Temp 97.3 F 06/11/24 14:06 Pulse 81 06/11/24 14:06 BP 110/68 06/11/24 14:06 Pulse Ox 95 06/11/24 14:06 Oxygen Delivery Method Room Air 06/11/24 14:06 Care Plan Goal for BP management: BP in range BMI result Body Mass Index 25.3 Tobacco/Smoking Status: Tobacco use Status Tobacco use date assessed 06/11/24 06/11/24 14:14 Patient Tobacco Use Status Never used Tobacco 06/11/24 14:14 e-Cigarette/Vaping Use Never Used 06/11/24 14:14 PHQ-9: PHQ-9 Score PHQ-9: Total score 0 06/11/24 14:30 Depression Screening Interpretation: Negative Thrive Assessment: Date of Thrive Assessment Date Thrive assessed 06/11/24 06/11/24 14:14 Currently or been in a relationship where the following occur: No concerns reported Advance Care Planning discussion: Exists, not on file Date of discussion: 06/11/24 Who was present: Patient Forms completed: Health Care Proxy Actual minutes spent: 5 Coding Level of Care Code Est Pt Level 4 (30813) Complex EM visit Add On G2211 Diagnoses Hypertension I10 Hypercholesterolemia E78.00 Alcohol use F10.90 Additional Codes Vital Signs *Quality* - Advance Care Planning discussion: Exists, not on file ([id number]) Assessment & Plan Assessment & Plan (1) Hypertension: Code(s): I10 - Essential (primary) hypertension Category: Medical Plan: BP in range, continue current meds. (2) Hypercholesterolemia: Code(s): E78.00 - Pure hypercholesterolemia, unspecified Category: Medical Plan: BW ordered. Will call with results. (3) Alcohol use: Code(s): F10.90 - Alcohol use, unspecified, uncomplicated Category: Social Hx Plan: Counselling to drink in moderation. Plan History of Present Illness The patient is a 63-year-old male presenting for a wellness visit. His blood pressure remains stable, possibly aided by recent travel. While he drinks alcohol daily, he attempts to maintain a diet leaning towards vegetarianism and is aware of his consumption. His hypertension and hypercholesterolemia are well- regulated with current medication management, and he plans on completing fasting blood work. He is considering an eye exam due to concerns with his vision, which he currently manages with reading glasses. He experienced arthritic symptoms in his shoulders during colder months, which have subsided. 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 - Housing: Lives alone. - Substance Use: Consumes alcohol daily, although he is conscious about it. - Exercise: Engages in physical activities through work and hiking. - Functional Status: No difficulties performing tasks as a lester. - Nutrition: Steering toward a vegetarian or vegan diet, though he continues to eat meat. Review of Systems - Cardiovascular: Reports stable blood pressure. - Musculoskeletal: Reports past episodes of shoulder discomfort resembling arthritis which has resolved. - Eyes: Reports using [id number] reading glasses for vision difficulties. - Psychiatric: Denies any issues affecting daily activities or sleep. Physical Exam General: Cooperative and healthy appearing Nutritional Appearance: Well nourished Orientation/consciousness: Patient oriented x3 Limitations: No limitations Head: Normal to inspection General: Appearance normal, both eyes and all related structures Neck: Normal visual inspection Chest: Normal palpation of entire chest wall Respiratory: N ormal respiratory effort Neurology: Patient oriented x3, but reports concerns about eyesight and uses readers. Results Plan The patient's hypertension and hypercholesterolemia are well-managed, and no medication changes are necessary. Fasting blood work is planned to monitor his health further. Due to the manageable nature of his alcohol consumption, he should maintain awareness of his intake. An eye exam is recommended for his vision concerns, with instructions that a referral is not needed. The resolved shoulder discomfort requires no further action. He should maintain his active lifestyle and dietary choices. I advised monitoring for any physical changes or symptoms requiring attention. Patient was informed and verbally consented to the use of an ambient scribe for clinic note documentation during this visit. Discussion Notes I discussed with the patient that his hypertension and hypercholesterolemia are well-controlled with his current regimen, and no changes are needed at this time. We reviewed the importance of fasting blood work to ensure continued management of his cholesterol levels. The patient is aware of his alcohol consumption and its potential impact on his health, opting to maintain a balanced approach towards his dietary lifestyle. Regarding his vision, I informed him that he should have an eye exam without a referral through his insurance, and we discussed how using readers might not be adequate long-term. I assured him that since his shoulder symptoms have resolved, additional interventions are not necessary, but advised vigilance about any future symptoms. I encouraged him to continue his physical activity and intentional dietary choices. Patient Instructions - Continue taking medications as prescribed for hypertension and hypercholesterolemia. - Complete fasting blood work as discussed to monitor cholesterol levels. - Be conscious of alcohol intake. - Schedule an eye exam for vision concerns; a referral is not required with your insurance. - Maintain current lifestyle, including physical activity and diet preferences. - Report any new or worsening symptoms promptly. Orders: Orders Basic Metabolic Panel 06/11/24 E78.00 - Pure hypercholesterolemia, unspecified, I10 - Essential (primary) hypertension Complete Blood Count no Diff 06/11/24 E78.00 - Pure hypercholesterolemia, unspecified, I10 - Essential (primary) hypertension Lipid Panel 06/11/24 E78.00 - Pure hypercholesterolemia, unspecified, I10 - Essential (primary) hypertension UA and rflx microscopic 06/11/24 E78.00 - Pure hypercholesterolemia, unspecified, I10 - Essential (primary) hypertension Prostate Specific Antigen Scr 06/11/24 E78.00 - Pure hypercholesterolemia, unspecified, I10 - Essential (primary) hypertension Liver Panel 06/11/24 E78.00 - Pure hypercholesterolemia, unspecified, I10 - Essential (primary) hypertension Thyroid Stimulating Hormone 06/11/24 E78.00 - Pure hypercholesterolemia, unspecified, I10 - Essential (primary) hypertension
[2024-06-11 14:06] VITALS: BP 110/68; PULSE 81; TEMP 36.3; O2SAT 95; BMI 25.3
--- OUTSIDE RECORDS SUMMARY | 2024-06-11 17:04 | XMS_ITS | Clinical Summary ---
Author Organization [employer] Address [address] [place] [address] Care Team Providers Care Enterprise Architect Manager Name Role Phone Unavailable Primary Care Provider Unavailabl e Social History Tobacco Use Types Packs/Day Years Used Date Smoking Tobacco: Never Assessed Sex and Gender Information Value Date Recorded Sex Assigned at Male 12/25/2021 10:24 AM EDT Legal Sex Male 10:24 AM EDT Gender Identity Not on file Sexual Orientation Not on file Plan of Treatment Health Maintenance Due Date Last Done Comments CT Colonography 1959 Colonoscopy 1959 Colorectal Cancer Screening 1959 Depression Screening 1959 FIT DNA/Cologuard 1959 FIT 1959 FOBT 1959 Lipid Panel 1959 Sigmoidoscopy 1959 Alcohol/Substance Use Screening 1971 Tobacco Screening 1971 DTaP/Tdap/Td Vaccines (1 - Tdap) 11/01/1978 Pneumococcal Vaccine: 50+ Ye ars (1 of 1 - PCV) 11/01/2009 Zoster Vaccines (1 of 2) 11/01/2009 COVID-19 Vaccine ( - 2023-2 5 season) 2023 Influenza Vaccine (#1) 2023 RSV Patients and Pa tients Aged 60 years or older (1 - 1-dose 75+ series) 11/01/2034 HIB Vaccines Aged Out No longer eligi ble based on patient's age to complete this topic HPV Vaccines Aged Out No longer eligi ble based on patient's age to complete this topic Hepatitis A Vaccines Aged Out No long er eligible based on patient's age to complete this topic Hepatitis B Vaccines Aged Out No long er eligible based on patient's age to complete this topic IPV Vaccines Aged Out No longer eligi ble based on patient's age to complete this topic Meningococcal Vaccine Aged Out No edmund zully eligible based on patient's age to complete this topic Pneumococcal Vaccine: Pediat rics (0 to 5 Years) and At-Risk Patients (6 to 49) Years) Aged Out No longer eligible b ased on patient's age to complete this topic RSV under 20 months Aged Out No longe r eligible based on patient's age to complete this topic Rotavirus Vaccines Aged Out No longer eligible based on patient's age to complete this topic
== END 2024-06-11 14:27 | disposition home or self-care (01) ==
LOC: HO.HMCH 14:00
PROVIDERS: PCP Internal Medicine; Visit Provider Internal Medicine
DX: I10 Essential (primary) hypertension (principal); E78.00 Pure hypercholesterolemia, unspecified; F10.90 Alcohol use, unspecified, uncomplicated; Z00.00 Encounter for general adult medical examination without abnormal findings

== ENCOUNTER → 2024-06-11 13:59 | Outpatient (BNVA) | payer OTHER, SELFPAY | PROVIDERS: PCP Internal Medicine; Visit Provider Internal Medicine | DX: I10 Essential (primary) hypertension (principal); E78.00 Pure hypercholesterolemia, unspecified; F10.90 Alcohol use, unspecified, uncomplicated | CPT/HCPCS: 99212 ==